=== PATIENT | male | born 1945 | race Caucasian/White ===

== ENCOUNTER → 2016-09-28 | Outpatient (CLI) | payer OTHER, BC ==
[~2016-09-28] MED LIST: DEXAMETHASONE 4 MG/ML VIAL ONE; KETOROLAC 30 MG/1 ML SDV ONE; LIDOCAINE 2% 5 ML SDV ONE; ONDANSETRON 4 MG/2 ML VIAL ONE; epHEDrine SULFATE 10 MG/ML SYR ONE
--- NOTE | 2016-09-28 14:58 | US ---
Bilateral Duplex Carotid Sonography Clinical Indications: 71-year-old male with coronary artery disease, hypertension, and hyperlipidemia . Rule out hemodynamically significant stenosis. ICD 10 Diagnostic Code: R09.89. Technique: The cervical portions of the carotid and vertebral arteries were imaged and interrogated by color and pulsed Doppler. Spectral analysis was performed. Cine clips are stored on PACS. Comparison Study: None. Findings: Right Carotid Artery: The common carotid artery, bifurcation, and origin of the internal and externa l carotid artery are well imaged. Doppler velocity estimates and color Doppler spectra are normal, w ith no sonographic evidence of a flow-limiting stenosis. There is some mild intimal thickening along the posterior margin of the proximal right internal carotid artery. The peak systolic velocity in the internal carotid artery is 68 cm/sec, with a peak diastolic velocity of 20 cm/sec. The ICA to CCA sy stolic and diastolic ratios are normal, and the ICA right to left systolic ratio is normal. Left Carotid Artery: The common carotid artery, bifurcation, and origin of the internal and external carotid artery are well imaged. Doppler velocity estimates and color Doppler spectra are normal, wi th no sonographic evidence of a flow-limiting stenosis. There is some echogenic calcific plaque at th e level of the carotid bulb. The peak systolic velocity in the internal carotid artery is 79 cm/sec, with a peak diastolic velocity of 24 cm/sec. The ICA to CCA systolic and diastolic ratios are normal. Vertebral Arteries: Antegrade flow is shown by pulsed Doppler of each vertebral artery. The peak sys tolic velocity in the right vertebral artery is 43 cm/sec, and in the left vertebral artery is 61 cm/ sec. Impression: 1. Mild atherosclerotic changes, with no sonographic evidence of a flow-limiting carotid stenosis. 2. Patent, antegrade vertebral arteries. Measurement of carotid stenosis is based on velocity parameters that correlate the residual internal carotid diameter with [place] Symptomatic Carotid Endarterectomy Trial (NASCET) based stenosis levels.
== END ==
LOC: FIMAGING 09:48
PROVIDERS: ATTEND Internal Medicine Cardiovascular Disease
DX: I65.23 Occlusion and stenosis of bilateral carotid arteries (principal); I25.10 Atherosclerotic heart disease of native coronary artery without angina pectoris; I10 Essential (primary) hypertension; E78.5 Hyperlipidemia, unspecified
CPT/HCPCS: J1100; J1885; J2405

== ENCOUNTER → 2016-12-09 | Outpatient (CLI) | payer OTHER, BC | LOC: BMCIMAGING 10:51 | PROVIDERS: ATTEND Internal Medicine Rheumatology | DX: M12.841 Other specific arthropathies, not elsewhere classified, right hand (principal) ==

== ENCOUNTER → 2017-12-26 | Outpatient (CLI) | payer OTHER, BC | LOC: BMCIMAGING 17:59 | PROVIDERS: ATTEND Family Medicine | DX: M85.842 Other specified disorders of bone density and structure, left hand (principal) ==

== ENCOUNTER 2018-09-03 07:12 | Emergency (ER) | payer OTHER, BC ==
[2018-09-03 07:19] VITALS: BP 135/78
[2018-09-03] MEDS ORDERED: PROPARACAINE 0.5% 15 ML OPHT DROP ONE (07:21)
[2018-09-03] MEDS ORDERED: FLUORESCEIN SODIUM 1 MG STRIP OP ONE (07:21)
--- NOTE | 2018-09-03 08:11 | EDPHY ---
H & P Stated Complaint: R eye scratched last night from his dog Time Seen by Provider: 09/03/18 08:00 - Personal History Current Tetanus/Diphtheria Vaccine: Yes Current Tetanus Diphtheria and Acellular Pertussis (TDAP): Yes Tetanus Vaccine Date: within 10 years - Medical/Surgical History Hx Asthma: No Hx Chronic Respiratory Disease: No Hx Diabetes: No Hx Cardiac Disease: No Hx Renal Disease: No Hx Cirrhosis: No Hx Alcoholism: No Hx HIV/AIDS: No Hx Splenectomy or Spleen Trauma: No Other PMH: Kidney Stones, Hernia Repair, cataract surgery, htn - Social History Smoking Status: Never smoked Constitutional: Initial Vital Signs Temperature (C) 36.3 C 09/03/18 07:15 Heart Rate 78 09/03/18 07:15 Respiratory Rate 16 09/03/18 07:15 Blood Pressure 135/78 H 09/03/18 07:15 O2 Sat (%) 98 09/03/18 07:15 O2 Delivery Mode Room Air Allergies/Adverse Reactions: Sulfa (Sulfonamide Antibiotics) Allergy (Verified 09/08/15 01:57) Home Medications: Medication Instructions Recorded Allopurinol [Allopurinol 300 MG 300 mg PO DAILY 09/08/15 (RX)] Atorvastatin Calcium [Lipitor 10 10 mg PO HS 09/08/15 mg (*)] Hydrochlorothiazide [HCTZ (*)] 12.5 mg PO DAILY 09/08/15 Pantoprazole Sodium [Protonix 40mg 40 mg PO DAILY 09/08/15 (*)] amLODIPine BESYLATE [Norvasc 5 mg 5 mg PO HS 09/08/15 (*)] Ofloxacin 0.3% [Ocuflox 0.3%] 1 drops OP QID #1 opht.btl 09/03/18 Medical Decision Making ED Course/Re-evaluation: CHIEF COMPLAINT: Eye pain HISTORY OF PRESENT ILLNESS: The patient is a 73 y/o male complaining of right eye pain after he was accidentally scratched by his dog yesterday morning. He was exercising on the floor when his dog walked by and scratched his right eye. Since then he's had a sore sensation in the eye and this morning he noticed his eye was red. He called his [facility]'s nursing hotline and they referred him to the ED. He denies vision changes, severe pain, fever, discharge, or other complaints. REVIEW OF SYSTEMS: A comprehensive 10 system review of systems is otherwise negative aside from elements mentioned in the history of present illness and medical decision making. PHYSICAL EXAM: HR, BP, O2 Sat, RR. Temp noted General Appearance: Alert, well hydrated, appropriate, and non-toxic appearing. Head: Atraumatic without scalp tenderness or obvious injury Eyes: Visual Acuity: Noted from Nurse's notes. Pupils: PERRLA, EOMI, no nystagmus, no trauma, no injection. Lids: No edema or swelling Skin: No proptosis, no periorbital erythema or swelling, no vesicles Conjunctivae: Not injected, not icteric, no discharge Cornea: Exam with slit lamp and fluorescein shows small corneal abrasion over right pupil. Anterior chamber: Normal, no hyphema or hypopyon Posterior Chamber: No papilledema or hemorrhages. Ears: Clear bilaterally, no perforation, normal landmarks Nose: Atraumatic, no rhinorrhea, clear. Throat: Mucus membranes moist. Neck: Supple, non-tender, no lymphadenopathy. Respiratory: No distress. Cardiovascular: Good capillary refill all extremities. Musculoskeletal: Normal active ROM of all extremities, atraumatic. Neurological: Alert, appropriate, and interactive. Nonfocal. Skin: No rashes, good turgor, no nodules on palpation. PAST MEDICAL HISTORY: Kidney stones, hypertension PAST SURGICAL HISTORY: Cataract surgery. SOCIAL HISTORY: Lives in [place]. . Dietary Aid: Dr. Rosario DIFFERENTIAL DIAGNOSIS: The differential diagnosis for the patient's symptoms included but was not limited to corneal abrasion, infection, ocular trauma. MEDICAL DECISION MAKING: This is a 73 y/o male who presents with a 1-day history of right eye pain secondary to a scratch from his dog. On exam, he has a small corneal abrasion overlying his right pupil. Plan for treatment with Ocuflox drops and ophthalmology follow up in the next 2 days. Follow up and return precautions discussed. He is comfortable with this plan. Departure - Departure Disposition: Home, Routine, Self-Care Clinical Impression: Corneal abrasion Qualifiers: Encounter type: initial encounter Laterality: right Qualified Code(s): S05.01XA - Injury of conjunctiva and corneal abrasion without foreign body, right eye, initial encounter Condition: Good Instructions: Ofloxacin (Into the eye), Corneal Abrasion (ED) Additional Instructions: 1. Use Ocuflox drops as directed in the affected eye until directed to stop by Dr. Rosario. 2. Follow up with your stock handler in the next two days for reevaluation. 3. Return to the ED for severe pain, significant vision changes, fever, or other worsening of condition. Referrals: Thompson Resendiz MD [Primary Care Provider] - As per Instructions Christian Rosario MD [Medical Doctor] - As per Instructions Prescriptions: Ofloxacin 0.3% [Ocuflox 0.3%] 1 drops OP QID #1 opht.btl Report Scribed for: Yayo Valencia Report Scribed by: Sherrie Reagan Date of Report: 09/03/18 Time of Report: 08:20
== END 2018-09-03 08:19 | disposition home or self-care (01) ==
DX: S05.01XA Injury of conjunctiva and corneal abrasion without foreign body, right eye, initial encounter (principal); W54.8XXA Other contact with dog, initial encounter; Y92.9 Unspecified place or not applicable; Y93.9 Activity, unspecified; Y99.9 Unspecified external cause status

== ENCOUNTER → 2018-10-01 | Outpatient (CLI) | payer OTHER, BC | LOC: BMCIMAGING 09:49 ==

== ENCOUNTER → 2018-10-01 | Outpatient (CLI) | payer OTHER, BC | LOC: BMCIMAGING 09:45 | PROVIDERS: ATTEND Family Medicine | DX: R07.81 Pleurodynia (principal) | CPT/HCPCS: 71101-PO ==

== ENCOUNTER → 2018-11-01 | Outpatient (CLI) | payer OTHER, BC | LOC: BMCIMAGING 08:39 | PROVIDERS: ATTEND Orthopaedic Surgery Hand Surgery | DX: M79.644 Pain in right finger(s) (principal); M15.2 Bouchard's nodes (with arthropathy); M15.4 Erosive (osteo)arthritis ==